=== PATIENT | female | born 1975 | race Caucasian/White ===

== ENCOUNTER 2020-09-12 13:11 | Emergency (ER) | payer OTHER ==
[~2020-09-12 13:11] MED LIST: FLEXERIL 10 MG10 MG PO; NORCO 7.5-3251 EACH PO; PERCOCET 5-3251 EACH PO; ZOFRAN4 MG PO
== END 2020-09-12 13:20 | disposition left against medical advice (07) ==
LOC: ER1 13:11
DX: Z53.21 Procedure and treatment not carried out due to patient leaving prior to being seen by health care provider (principal)

== ENCOUNTER 2020-10-31 07:18 | Emergency (ER) | payer OTHER ==
[~2020-10-31] VITALS: Ht 165.1 cm; Wt 77.1 kg
[2020-10-31 08:04] LABS: HEMOGLOBIN 15.7 gm/dl (12.3-15.3); RED BLOOD COUNT 5.14 M/UL (4.00-5.10); WHITE BLOOD COUNT 5.5 K/UL (4.5-11.0)
[2020-10-31 08:33] LABS: BUN/CREATININE RATIO 14 (0-10)
== END 2020-10-31 13:20 | disposition home or self-care (01) ==
LOC: ER1 07:18
PROVIDERS: Emergency Medicine
DX: U07.1 COVID-19 (principal); J12.82 Pneumonia due to coronavirus disease 2019; Z23 Encounter for immunization
CPT/HCPCS: 71045; 80053; 81001; 82550; 82553; 83690; 83874; 84484; 84703; 85025; 85379; 87040; 93005; 99284; M0243; U0002

== ENCOUNTER 2020-11-04 09:55 | Emergency (ER) | payer OTHER ==
[2020-11-04 11:00] LABS: HEMOGLOBIN 13.9 gm/dl (12.3-15.3); RED BLOOD COUNT 4.83 M/UL (4.00-5.10); WHITE BLOOD COUNT 7.7 K/UL (4.5-11.0)
[2020-11-04 11:29] LABS: BUN/CREATININE RATIO 14 (0-10)
[2020-11-04] MEDS ORDERED: ZOFRAN4 MG PO (13:22)
[2020-11-04] MEDS ORDERED: ZITHROMAX250 MG PO (13:22)
== END 2020-11-04 13:55 | disposition home or self-care (01) ==
LOC: ER1 09:55
PROVIDERS: Physician Assistant
DX: U07.1 COVID-19 (principal); J12.82 Pneumonia due to coronavirus disease 2019; E87.6 Hypokalemia; R73.9 Hyperglycemia, unspecified; F17.200 Nicotine dependence, unspecified, uncomplicated; Z88.1 Allergy status to other antibiotic agents
CPT/HCPCS: 71045; 80053; 81001; 85025; 96374; 99284; J1885